=== PATIENT | male | born 1990 | race Two or more races ===

== ENCOUNTER 2020-10-07 13:14 | Emergency (ER) | payer OTHER ==
[~2020-10-07] VITALS: Ht 175.3 cm; Wt 81.6 kg
[2020-10-07 13:19] VITALS: BP 133/101
--- NOTE | 2020-10-07 13:23 | NUR ---
patient discharged in custody accompanied by [employer] in no distress.
== END 2020-10-07 13:22 ==
LOC: ER 13:19
DX: Z02.89 Encounter for other administrative examinations (principal)